=== PATIENT | female | born 1990 | race African-American/Black ===

== ENCOUNTER 2017-02-08 22:13 | Emergency (ER) | payer MEDICAID ==
[~2017-02-08] VITALS: Ht 160 cm; Wt 59.0 kg
[2017-02-08] MEDS ORDERED: ONDANSETRON HCL 4MG/2ML VIAL IM STA (22:57)
[2017-02-08] MEDS ORDERED: KETOROLAC 30MG/ML VIAL IV STA (23:30)
[2017-02-08] MEDS ORDERED: SODIUM CHLORIDE 0.9% 1,000 ML IV ONE (23:30)
[2017-02-08] MEDS ORDERED: TETANUS, DIPHTHERIA, PERTUSSIS VAC/PF 0.5ML (>7YR OLD) IM ONE (23:45)
[2017-02-09] MEDS ORDERED: MORPHINE SULFATE 4 MG/ML CPJ (NOT FOR IM USE) IV ONE (01:30)
[2017-02-09] MEDS ORDERED: ONDANSETRON HCL 4MG/2ML VIAL IV ONE ×2 (01:30→04:30)
[2017-02-09] MEDS ORDERED: MORPHINE SULFATE 10 MG/ML CPJ IM ONE (04:00)
[2017-02-09] MEDS ORDERED: ONDANSETRON HCL 4MG/2ML VIAL IM ONE (04:00)
[2017-02-09] MEDS ORDERED: MORPHINE SULFATE 2 MG/ML CPJ (NOT FOR IM USE) IV ONE (04:30)
[2017-02-09] MEDS ORDERED: TETANUS, DIPHTHERIA, PERTUSSIS VAC/PF 0.5ML (>7YR OLD) IM ONE (04:45)
[2017-02-09] MEDS ORDERED: BACITRACIN ZINC OINT UDPKT TOP ONE (08:00)
[2017-02-09] MEDS ORDERED: ACETAMINOPHEN 500MG TABLET PO ONE (10:00)
[2017-02-09 10:32] VITALS: BP 121/71
== END 2017-02-09 10:33 | disposition home or self-care (01) ==
LOC: ER 22:13
DX: M54.9 Dorsalgia, unspecified (principal)
CPT/HCPCS: 90471; 96361; 96374; 96375; 96376; 99285; J1885; J2270; J2405; X7700; Z7610; J7030